=== PATIENT | male | born 1965 | race African-American/Black ===

== ENCOUNTER 2020-01-29 08:26 | Emergency (ER) | payer OTHER ==
[2020-01-29] MEDS ORDERED: Ketorolac Tromethamine 30 MG/ML VIAL ONE (08:44)
== END 2020-01-29 08:53 | disposition home or self-care (01) ==
LOC: BURERS 08:26 → EDSEX 08:26 → BURERS 08:53
DX: M54.41 Lumbago with sciatica, right side (principal); I10 Essential (primary) hypertension; E11.9 Type 2 diabetes mellitus without complications
CPT/HCPCS: 96372; 99283; J1885

== ENCOUNTER 2022-02-02 14:32 | Emergency (ER) | payer OTHER ==
[2022-02-02] MEDS ORDERED: Tetracaine 0.5% PF 4 ML BOT ONE (14:52)
[2022-02-02] MEDS ORDERED: Fluorescein Opthalmic Strip ONE (14:52)
[2022-02-02] MEDS ORDERED: Erythromycin Base 0.5% Ophth Oint 3.5 gm Tube ONE (15:23)
== END 2022-02-02 15:30 | disposition home or self-care (01) ==
LOC: BURERS 14:32
DX: S05.02XA Injury of conjunctiva and corneal abrasion without foreign body, left eye, initial encounter (principal); E11.9 Type 2 diabetes mellitus without complications; I10 Essential (primary) hypertension; X58.XXXA Exposure to other specified factors, initial encounter; Y92.89 Other specified places as the place of occurrence of the external cause; Y99.0 Civilian activity done for income or pay
CPT/HCPCS: 99283

== ENCOUNTER 2022-08-14 10:59 | Emergency (ER) | payer BC, OTHER ==
[2022-08-14 11:46] LABS: Bilirubin Negative (Negative); Blood, Urine Trace (Negative); Clarity Clear (Clear); Glucose, Urine (Dipstick) Negative (Negative); Ketone, Urine Negative (Negative); Leukocyte Negative (Negative); Nitrite Negative (Negative); Protein, Urine (Dipstick) Negative (Neg-Trace); Urobilinogen 0.2 mg/dL (Less than 2)
[2022-08-14 11:58] LABS: #Basophils 0.1 thou/uL (0.0-0.2); #Monocytes 0.6 thou/uL (0.11-0.59); #Neutrophils 3.5 thou/uL (1.40-6.50); %Basophils 1.3 % (0.0-1.0); %Eosinophils 0.6 % (0.0-10.0); %Lymphocytes 32.6 % (21.0-51.0); %Monocytes 9.4 % (0.0-10.0); %Neutrophils 56.2 % (42.0-75.0); ALT (SGPT) 18 U/L (8-55); AST (SGOT) 13 U/L (5-34); Albumin 4.1 g/dL (3.5-5.0); Alkaline Phosphatase 63 U/L (40-110); Anion Gap 14 mmol/L (10-20); BUN (Urea Nitrogen) 16 mg/dL (8.4-25.7); Bilirubin, Total 0.3 mg/dL (0.2-1.2); Calc. Creatinine Clearance 0 mL/min (70-130); Calcium 9.7 mg/dL (7.8-10.44); Carbon Dioxide 29 mmol/L (22-29); Chloride 101 mmol/L (98-107); Estimated GFR 76; Globulin 3.1 g/dL (2.4-3.5); Glucose 187 mg/dL (70-105); Hemoglobin 13.4 g/dL (14.0-18.0); Mean Corpuscular HGB CONC 31.2 g/dL (32.0-36.0); Mean Corpuscular Volume 70.6 fl (78.0-98.0); Mean Platelet Volume 8.9 fL (7.4-10.4); Platelet Count 207 10x3/uL (130-400); Potassium 3.2 mmol/L (3.5-5.1); Protein, Total 7.2 g/dL (6.0-8.3); RBC Distribution Width 14.7 % (11.5-14.5); Sodium 141 mmol/L (136-145); White Blood Cell (WBC) Count 6.2 10x3/uL (4.8-10.8)
[2022-08-14 12:00] LABS: Platelet Morphology Comment Appears Adequate; RBC Morphology Normal
[2022-08-14 12:01] LABS: MDiff Complete? YES
[2022-08-14] MEDS ORDERED: Potassium Chloride 20 MEQ TAB ONE (12:08)
[2022-08-14 12:12] LABS: Bacteria/HPF None Seen HPF (None Seen); RBC/HPF 0-3 HPF (0-3); Squamous Epithelial 0-3 HPF (0-3); WBC/HPF None Seen HPF (0-3)
== END 2022-08-14 12:17 | disposition home or self-care (01) ==
LOC: BURERS 10:59
DX: E11.65 Type 2 diabetes mellitus with hyperglycemia (principal); E87.6 Hypokalemia; I10 Essential (primary) hypertension; M10.9 Gout, unspecified; Z79.84 Long term (current) use of oral hypoglycemic drugs; Z79.899 Other long term (current) drug therapy
CPT/HCPCS: 36416; 80053; 81003; 81015; 85025; 96360

== ENCOUNTER 2022-09-18 05:45 | Emergency (ER) | payer BC ==
[2022-09-18] MEDS ORDERED: methylPREDNISolone Sod Succ/PF 125 MG/2 ML VIAL ONE (06:42)
[2022-09-18] MEDS ORDERED: diphenhydrAMINE 50 MG/ML VIAL ONE (06:42)
[2022-09-18] MEDS ORDERED: Famotidine/PF 20 mg/2ml Vial ONE (06:42)
[2022-09-18 06:45] LABS: #Basophils 0.1 thou/uL (0.0-0.2); #Lymphocytes 2.2 thou/uL (1.20-3.40); #Monocytes 0.5 thou/uL (0.11-0.59); #Neutrophils 2.3 thou/uL (1.40-6.50); %Eosinophils 0.7 % (0.0-10.0); %Lymphocytes 42.4 % (21.0-51.0); %Monocytes 9.3 % (0.0-10.0); %Neutrophils 45.6 % (42.0-75.0); Hemoglobin 13.6 g/dL (14.0-18.0); Hypochromia SLIGHT = 6-15 cells (100X) (0-5/hpf); MDiff Complete? YES; Mean Corpuscular HGB CONC 30.7 g/dL (32.0-36.0); Mean Corpuscular Hemoglobin 21.4 pg (27.0-31.0); Mean Corpuscular Volume 69.6 fl (78.0-98.0); Mean Platelet Volume 10.4 fL (7.4-10.4); Microcytosis SLIGHT = 6-15 cells (100X) (0-5/hpf); Platelet Count 202 10x3/uL (130-400); RBC Distribution Width 14.1 % (11.5-14.5); Red Blood Cell (RBC) Count 6.35 mill/uL (4.70-6.10); White Blood Cell (WBC) Count 5.1 10x3/uL (4.8-10.8)
[2022-09-18 06:49] LABS: ALT (SGPT) 27 U/L (8-55); AST (SGOT) 22 U/L (5-34); Albumin 4.1 g/dL (3.5-5.0); Alkaline Phosphatase 64 U/L (40-110); Anion Gap 14 mmol/L (10-20); BUN (Urea Nitrogen) 15 mg/dL (8.4-25.7); Bilirubin, Total 0.5 mg/dL (0.2-1.2); Calc. Creatinine Clearance 0 mL/min (70-130); Calcium 9.1 mg/dL (7.8-10.44); Carbon Dioxide 27 mmol/L (22-29); Chloride 102 mmol/L (98-107); Estimated GFR 91; Glucose 250 mg/dL (70-105); Potassium 3.2 mmol/L (3.5-5.1); Protein, Total 7.1 g/dL (6.0-8.3); Sodium 140 mmol/L (136-145)
== END 2022-09-18 10:11 | disposition home or self-care (01) ==
LOC: BURERS 05:45
DX: K13.79 Other lesions of oral mucosa (principal); I10 Essential (primary) hypertension; E11.9 Type 2 diabetes mellitus without complications; Z79.899 Other long term (current) drug therapy; Z79.82 Long term (current) use of aspirin; Z79.84 Long term (current) use of oral hypoglycemic drugs
CPT/HCPCS: 36415; 70491; 80053; 85025; 96374; 96375; J1200; J2930; S0028

== ENCOUNTER 2024-02-04 20:23 | Emergency (ER) | payer BC ==
[2024-02-04] MEDS ORDERED: Aspirin Chewable 81 MG TAB ONE (20:48)
[2024-02-04] MEDS ORDERED: Nitroglycerin 0.4 MG TAB 1 EACH ONE (20:48)
[2024-02-04 21:06] LABS: Hematocrit 43.4 % (42.0-52.0); Hemoglobin 12.9 g/dL (14.0-18.0); Mean Corpuscular HGB CONC 29.8 g/dL (32.0-36.0); Mean Corpuscular Hemoglobin 20.4 pg (27.0-31.0); Mean Corpuscular Volume 68.3 fl (78.0-98.0); Mean Platelet Volume 8.9 fL (7.4-10.4); Platelet Count 210 10x3/uL (130-400); RBC Distribution Width 14.6 % (11.5-14.5); Red Blood Cell (RBC) Count 6.35 mill/uL (4.70-6.10); White Blood Cell (WBC) Count 9.3 10x3/uL (4.8-10.8)
[2024-02-04 21:22] LABS: Lymphocytes 18 % (21-51); MDiff Complete? YES; Microcytosis SLIGHT = 6-15 cells (100X) (0-5/hpf); Monocytes 8 % (0-10); Neutrophil 74 % (42-75); Nucleated RBC (Manual Ct) 6 % (0); Platelet Adequacy Comment Appears Adequate
[2024-02-04 21:25] LABS: ALT (SGPT) 24 U/L (8-55); AST (SGOT) 16 U/L (5-34); Albumin 4.2 g/dL (3.5-5.0); Alkaline Phosphatase 72 U/L (40-110); Anion Gap 18 mmol/L (10-20); BUN (Urea Nitrogen) 15 mg/dL (8.4-25.7); Bilirubin, Total 0.4 mg/dL (0.2-1.2); Calc. Creatinine Clearance 0 mL/min (70-130); Calcium 9.3 mg/dL (7.8-10.44); Carbon Dioxide 26 mmol/L (22-29); Chloride 97 mmol/L (98-107); Estimated GFR 71; Globulin 2.8 g/dL (2.4-3.5); Glucose 270 mg/dL (70-105); Potassium 3.5 mmol/L (3.5-5.1); Sodium 137 mmol/L (136-145)
== END 2024-02-04 23:27 | disposition short-term general hospital (02) ==
LOC: BURERS 20:23
DX: R07.9 Chest pain, unspecified (principal); I10 Essential (primary) hypertension; E11.9 Type 2 diabetes mellitus without complications; Z79.84 Long term (current) use of oral hypoglycemic drugs; Z79.899 Other long term (current) drug therapy; Z79.82 Long term (current) use of aspirin
CPT/HCPCS: 71046; 80053; 83880; 84484; 85025; 93005; 94760

== ENCOUNTER 2025-01-11 12:19 | Emergency (ER) | payer BC ==
[2025-01-11] MEDS ORDERED: Lidocaine 1% (PF) 30 ML VIAL ONE (12:57)
[2025-01-11] MEDS ORDERED: Ibuprofen 200 MG TAB ONE (13:23)
[2025-01-11] MEDS ORDERED: Sulfameth/Trimethoprim DS 800-160mg TAB ONE (13:23)
== END 2025-01-11 14:10 | disposition home or self-care (01) ==
LOC: BURERS 12:19
DX: L02.214 Cutaneous abscess of groin (principal); E11.9 Type 2 diabetes mellitus without complications; I10 Essential (primary) hypertension; M10.9 Gout, unspecified; Z79.82 Long term (current) use of aspirin; Z79.84 Long term (current) use of oral hypoglycemic drugs
CPT/HCPCS: 10060; 87070; 87077; 87205